=== PATIENT | male | born 1960 | race Caucasian/White ===

== ENCOUNTER 2024-09-20 10:46 | Outpatient (CLI) | payer OTHER, SELFPAY ==
[2024-09-20 11:14] LABS: Basophils Absolute Auto 0.1 K/mm3 (0.0-0.1); Basophils Percent Auto 0.9 % (0.2-1.2); Eosinophils Absolute Auto 0.1 K/mm3 (0-0.3); Eosinophils Percent Auto 1.9 % (0-4.4); Hemoglobin 16.1 g/dL (14.0-18.0); Immature Granulocyte Absolute 0.02 K/mm3 (0.00-0.031); Immature Granulocyte Percent A 0.3 % (0-0.5); Lymphocytes Absolute Auto 1.71 K/mm3 (0.9-3.2); Lymphocytes Percent Auto 26.8 % (18.3-44.2); Mean Corpuscular HGB Conc 33.5 g/dl (32-36); Mean Corpuscular Volume 89.6 fl (80-100); Mean Platelet Volume 9.1 fl (7.4-10.4); Monocytes Absolute Auto 0.5 K/mm3 (0.1-0.6); Monocytes Percent Auto 8.5 % (2.6-8.5); Neutrophils Absolute Auto 3.9 K/mm3 (1.3-6.7); Neutrophils Percent Auto 61.6 % (45.5-73.1); Platelet Count Result 276 k/mm3 (150-375); Red Blood Count 5.36 M/mm3 (4.6-6.20); Red Cell Distribution Width 13.6 % (11.5-14.5); White Blood Count 6.4 K/mm3 (4.5-10.0)
--- OUTSIDE RECORDS SUMMARY | 2024-09-20 11:28 | XMS_ITS ---
Author Organization [facility] Address [address] [place] [address] Phone Care Team Providers Care Flask Maker Name Role Phone Vijaya Zimmerman MD Primary Care Provider Zhang López MD Unavailable Kenneth He MD Unavailable [phone] Zhang Mike MD Unavailable [phone] Active Problems Problem Noted Date Diagnosed Date History of therapeutic radiation 10/30/2022 Overview (10/30/2022): Adjuvant postoperative radiotherapy to the tracheotomy bed and regional nodes, 63 Gy to the primary tumor bed and 54 Gy to the regional nodes in 35 fractions, from 08/25/2022 thru 10/13/2022. 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 He was seen in Medical Oncology consultation 08/13/2022 and not recommended to receive systemic therapy. He began adjuvant postoperative tracheotomy bed and regional иирна radiotherapy 08/25/2022 and completed 10/01/2022 receiving 63 Gy to the primary tumor bed and 54 Gy to the regional nodes in 35 fractions. Postoperative hypothyroidism Current Treatment and Therapy Plans No current plan information found. Past Treatment and Therapy Plans No past plan information found. Past Radiation Episodes * IMRT: Midline Head and NeckOverview* First Treatment Date Last Treatment Date Treatment Site Technique Goal Episode Provider 08/25/2022 10/13/2022 Midline Head and neck IMRT Curative * Linked Problems Transglottic malignant neopl asm of larynx (HCC) Treatment Courses* Course C1 08/25/2022 - 10/13/2022 Treatment Period Fraction Dose Fractions Total Dose Plans Planned Postop Larynx_63Gy [[id number]_6300] 08/25/2022 - 10/13/2022 180 cGy 35 / 35 6,300 cG y Reference Points Delivered HN_PRP 08/25/2022 - 10/13/2022 6,300 cGy Resolved Problems Problem Noted Date Diagnosed Date Resolved Date S/P laryngectomy 08/07/2022 10/30/2022 Transglottic malignant neoplasm of larynx 08/07/2022 08/13/2022 Encounter for radiotherapy 0 10/30/2022 Encounter for follow-up exam ination after completed treatment for malignant neoplasm 05/12/2023
--- OUTSIDE RECORDS SUMMARY | 2024-09-20 11:28 | XMS_ITS | Clinical Summary ---
Author Organization [facility] Address [address] [place] [address] Phone Care Team Providers Care Receivables Specialist Name Role Phone Vijaya Zimmerman MD Primary Care Provider Zhang López MD Unavailable Kenneth He MD Unavailable [phone] Zhang Mike MD Unavailable [phone] Allergies Active Allergy Reactions Criticality Noted Date Comments Penicillins Hives High 06/16/2018 Vanilla Hives High 03/24/2021 Pure vanilla Medications clopidogrel (PLAVIX) 75 MG Tablet Take 75 mg by mouth. 9 Active enalapril (VASOTEC) 5 MG Tablet 3 Active cetirizine (ZyrTEC) 10 MG Tablet TAKE 1 TABLET BY MOUTH EVERY DAY NEEDED 3 Active metoprolol tartrate (LOPRESSOR) 25 MG Tablet 3 Active cyclobenzaprine (FLEXERIL) 10 MG Tablet 3 Active ibuprofen (MOTRIN) 800 MG Tablet TAKE 1 TABLET BY MOUTH TWICE DAILY FOR 15 DAYS NEEDED 3 Active hydrOXYzine (ATARAX) 25 MG Tablet Take 25 mg by mouth every 6 hours as needed. Active naloxone HCl (Narcan) 4 MG/0.1ML Liquid 1 [place] by Nasal route as needed (opioid overdose). administer for symptoms of overdose (severe sleepiness, breathing problems, not responsive). Call 911. May use additional dose to repeat 1 spray intranasally in 2-3 minutes if needed. 2 Each 3 Active Additional Information Patient not taking.Reported on 05/23/2024 levothyroxine (SYNTHROID) 50 MCG Tablet 3 Active Active Problems Problem Noted Date Diagnosed Date [...] began adjuvant postoperative tracheotomy bed and regional ирина radiotherapy 08/25/2022 and completed 10/01/2022 receiving 63 Gy to the primary tumor bed and 54 Gy to the regional nodes in 35 fractions. Postoperative hypothyroidism Resolved Problems Problem Noted Date Diagnosed Date Resolved Date S/P laryngectomy 08/07/2022 10/30/2022 Transglottic malignant neoplasm of larynx 08/07/2022 08/13/2022 Encounter for radiotherapy 0 10/30/2022 Encounter for follow-up exam ination after completed treatment for malignant neoplasm 05/12/2023 Family History Medical History Relation Name Comments Cancer Father Diabetes Father Relation Name Status Comments Father Mother Social History Tobacco Use Types Packs/Day Years Used Date Smoking Tobacco: Former Cigarettes Smokeless Tobacco: Never Tobacco Cessation:Counseling Given: Not Answered Alcohol Use Standard Drinks/Week Comments Never 0 (1 standard drink = 0.6 oz pur e alcohol) Sex and Gender Information Value Date Recorded Sex Assigned at Not on file Legal Sex Male 11:21 PM CDT Gender Identity Not on file Sexual Orientation Not on file Last Filed Vital Signs Vital Sign Reading Time Taken Comments Blood Pressure 121/76 05/23/2024 10:16 AM ANTHROPOLOGICAL LINGUIST Pulse 66 05/23/2024 10:16 AM ANTHROPOLOGICAL LINGUIST Temperature 37.2 C (98.9 F) 05/23/2024 10:16 AM ANTHROPOLOGICAL LINGUIST Respiratory Rate 18 05/23/2024 10:16 AM ANTHROPOLOGICAL LINGUIST Oxygen Saturation 97% 05/23/2024 10:16 AM ANTHROPOLOGICAL LINGUIST Inhaled Oxygen Concentration - - Weight 83.6 kg (184 lb 6.4 oz) 05/23/2024 10:16 AM ANTHROPOLOGICAL LINGUIST Height 172.7 cm (5' 8 ) 05/23/2024 10:16 AM ANTHROPOLOGICAL LINGUIST Body Mass Index 28.04 05/23/2024 10:16 AM ANTHROPOLOGICAL LINGUIST Plan of Treatment Upcoming Encounters Date Type Department Care Team (Late st Contact Info) Description 11/21/2024 10:00 AM CDT Office Visit [facility] Oncology Services [address] [place] [address] Zhang Mike MD [address] [place] [address] Discharge Disposition: Discharged to home or Selfcare Health Maintenance Due Date Last Done Comments Hepatitis C Virus (HCV) Screening 1961 TdaP Immunization 1961 Zoster Immunization (1 of 2) 1980 Colonoscopy 2006 Cologuard 09/05/2011 Respiratory Syncytial Virus (RSV) Immunization (Adult) (1 - Risk 60-74 years 1-dose series) 2021 Colorectal Cancer Screening 07/21/2022 Immunochemical Fecal Occult Blood 07/21/2023 07/20/2022 SARS-COV-2 Immunization (6 - Moderna risk season) 2024 02/09/2024, 02/25/2022, 05/14/2021, Additional history exists PSA Discussion Completed 04/14/2023 Influenza Immunization Completed , 03/23/2023, 02/10/2022 Pneumococcal Immunization (50+ years) Completed 05/11/2024, 05/23/2020 Pneumococcal Immunization Combined Discontinued 05/11/2024, 05/23/2020 Hepatitis B Immunization Aged Out No longer eligible based on patient's age to complete this topic Meningococcal Immunization (ACWY) Aged Out No longer eligible based on patient's age to complete this topic Rotavirus Immunization Aged Out No lo nger eligible based on patient's age to complete this topic Procedures Procedure Name Priority Date/Time Associated Diagnosis Comments PSA SCREEN 04/14/2023 12:00 AM ANTHROPOLOGICAL LINGUIST from Last 3 Months or Most Recently Relevant to Health Maintenance Results * PSA SCREEN (04/14/2023 12:00 AM ANTHROPOLOGICAL LINGUIST) PSA SCREEN, TOTAL 0.56 SCAN 04/14/2023 us Provider Scan CHEMISTRY ORDERABLES Final Resul t SCAN from Last 3 Months or Most Recently Relevant to Health Maintenance Insurance Care Teams Receivables Specialist Relationship Specialty Start Date End Date Vijaya Zimmerman MD [address] [place] [address] [place] [address] PCP - General Internal Medicine 08/07/22 Zhang López MD [address] [facility] [address] [place] [address] Consulting Physician Plastic Surgery Within the Head & Neck 08/13/22 Kenneth He MD [address] [place] [address] Consulting Physician Medical Oncology 08/13/22 Zhang Mike MD [address] [place] [address] Consulting Physician Radiation Oncology 08/13/22
--- OUTSIDE RECORDS SUMMARY | 2024-09-20 11:28 | XMS_ITS ---
Author Organization [facility] Address [address] [place] [address] Phone Care Team Providers Care Donations Attendant Name Role Phone Vijaya Zimmerman MD Primary Care Provider Active Problems Problem Noted Date Diagnosed Date Tracheostomy status 07/18/2022 Hoarseness of voice 07/16/2022 Squamous cell carcinoma of neck 07/16/2022 On mechanically assisted ventilation 07/13/2022 Neck mass 07/13/2022 Protein-calorie malnutrition, severe 07/13/2022 Melena 07/12/2022 Upper GI bleed 07/12/2022 Mouth bleeding 07/12/2022 History of mandibular surgery 07/12/2022 Acute blood loss anemia 07/12/2022 Sinus tachycardia 07/12/2022 Neck abscess 07/12/2022 Lactic acidosis 07/12/2022 Hemoptysis 07/12/2022 Current Treatment and Therapy Plans No current plan information found. Past Treatment and Therapy Plans No past plan information found. Lifetime Dose Tracking * Chemical Lifetime Dose Automatic Entry Manual Entr y Effective Dose 20.4 mSv 20.4 mSv 0 mSv Total DLP 2,951.92 DLP 2,951.92 DLP 0 DLP CTDIvol Max 69.91 mGy 69.91 mGy 0 mGy CTDIvol Min 9.39 mGy 9.39 mGy 0 mGy
--- OUTSIDE RECORDS SUMMARY | 2024-09-20 11:28 | XMS_ITS | Encounter Summary ---
Author Organization [facility]EL Restrepo [facility] Address [address] [place] [address] Care Team Providers Care Correctional Food Service Supervisor Name Role Phone Vijaya Zimmerman MD Primary Care Provider Reason for Referral * Laboratory Services (Routine) - Open Specialty Diagnoses / Procedures Referred By Contac t Referred To Contact Diagnoses Polycythemia, secondary Procedures JAK2 MUTATION Oniel Valencia MD [facility] [place] [id number] Phone: tel: fax: Referral ID Status Reason Start Date Expiration Date Visits Re quested Visits Authorized [id number] Open 09/20/2024 10/21/2025 1 1 Reason for Visit * Reason Comments Establish Care Encounter Details Date Type Department Care Team (Late st Contact Info) Description 09/20/2024 10:30 AM CDT Office Visit [facility] Oncology and Hematology - [place] [address] [place] [address] [address] [place] [address] Oniel Valencia MD [address] [place] [address] Polycythemia, secondary (Primary Dx) Social History Tobacco Use Types Packs/Day Years Used Date Smoking Tobacco: Former Cigarettes 1 50 Q uit: 07/01/2021 Smokeless Tobacco: Never Tobacco Cessation:Counseling Given: Not Answered Alcohol Use Standard Drinks/Week Comments Never 0 (1 standard drink = 0.6 oz pure alcohol) not for decades brother is an alcoholic Feeling Safe Answer Date Recorded Are you in a relationship wi th someone who hurts you emotionally and/or physically? No 07/18/2022 Food Insecurity Answer Date Recorded Patient needs follow up regarding: Not on file 07/08/2023 Transportation Needs Answer Date Record ed Patient needs follow up regarding: Not on file 07/08/2023 Housing Stability Answer Date Recorded Patient needs follow up regarding: Not on file 07/08/2023 Utility Needs Answer Date Recorded Patient needs follow up regarding: Not on file 07/08/2023 Sex and Gender Information Value Date Recorded Sex Assigned at Not on file Legal Sex Male 7:22 PM AGRICULTURAL LOAN OFFICER Gender Identity Not on file Sexual Orientation Not on file documented as of this encounter Last Filed Vital Signs Vital Sign Reading Time Taken Comments Blood Pressure 107/63 09/20/2024 9:49 AM CDT Pulse 62 09/20/2024 9:49 AM CDT Temperature 36.6 C (97.9 F) 09/20/2024 9:49 AM CDT Respiratory Rate 15 09/20/2024 9:49 AM CDT Oxygen Saturation 94% 09/20/2024 9:4 9 AM CDT Inhaled Oxygen Concentration - - Weight 82.6 kg (182 lb 3.2 oz) 09/20/2024 9:49 AM CDT Pt verbally stated that this is the correctly Height 170.2 cm (5' 7 ) 09/20/2024 9:49 AM CDT Body Mass Index 28.54 09/20/2024 9:49 AM CDT documented in this encounter Progress Notes * Oniel Valencia MD - 09/20/2024 10:05 AM CDT Hematology-oncology consult Note Requesting Physician Vijaya Zimmerman MD Primary Care Physician Vijaya Zimmerman MD Problem list Patient Active Problem List Diagnosis Code Melena K92.1 Upper GI bleed K92.2 Mouth bleeding K13.79 History of mandibular surgery Z98.890 Acute blood loss anemia D62 Sinus tachycardia R00.0 Neck abscess L02.11 Lactic acidosis E87.20 Hemoptysis R04.2 On mechanically assisted ventilation ([facility]) Z99.11 Neck mass R22.1 Protein-calorie malnutrition, severe E43 Hoarseness of voice R49.0 Squamous cell carcinoma of neck C44.42 Tracheostomy status ([facility]) Z93.0 Previous TREATMENT ? Measurable Disease ? Reason for Visit Slim Mccullough is a 64 y.o. male who was referred for consultation for erythrocytosis. History of present illness This is a pleasant 64-year-old male with history of smoking 1 pack/day for 50 years duration quit in July 2022 when he was diagnosed with laryngeal cancer status post total laryngectomy and left neck dissection and then adjuvant radiation therapy treatment in October 2022. Patient also has a history of hypothyroidism, hyperlipidemia and coronary artery disease status post stent placement in 2002. Currently he is on Plavix and aspirin. Denies any chest pain and shortness of breath. He has some dyspnea on exertion. Patient labs from May 2024 showed hematocrit of 51.7 with hemoglobinof 17.3. He is going to have pulmonary function testing and will follow-up with the pulmonary service. Denies any other complaints. Past Medical History Past Medical History: Diagnosis Date CAD (coronary artery disease) HTN (hypertension) Smoking Hyperlipidemia Hypothyroidism Surgical History Past Surgical History: Procedure Laterality Date HX CAROTID STENT HX ESOPHAGOGASTRODUODENOSCOPY N/A 07/15/2022 ESOPHAGOGASTRODUODENOSCOPY performed by Jama Aguilar MD at [facility] HX LARYNGECTOMY N/A 07/17/2022 TOTAL LARYNGECTOMY performed by Zhang López MD at [facility] OR [facility] HX MANDIBLE SURGERY HX NECK DISSECTION Left 07/17/2022 NECK DISSECTION performed by Zhang López MD at [facility] OR [facility] NECK SURGERY LARYNGOSCOPY N/A 07/13/2022 DIRECT LARYNGOSCOPY, BIOPSY, NEEDLE ASPIRATE performed by Jimy Maria MD at [facility] OR [facility] DC TRACHEOSTOMY PLANNED SEPARATE PROCEDURE N/A 07/13/2022 POSS TRACHEOSTOMY performed by Jimy Maria MD at [facility] OR [facility] Medications Current Outpatient Medications Medication Sig Dispense Refill levothyroxine 75 mcg tablet Take 1 Tablet (75 mcg) by mouth daily in the morning. 30 Tablet 11 icosapent ethyL (Vascepa) 1 gram Capsule Take 2 Grams by mouth 2 times daily. hydrOXYzine HCL (ATARAX) 25 mg tablet TAKE 1 TABLET BY MOUTH EVERY DAY NEEDED cyclobenzaprine (FLEXERIL) 10 mg tablet Take 1 Tablet (10 mg) by mouth 3 times daily as needed for Spasm. 60 Tablet 0 HYDROcodone-acetaminophen (NORCO) 5-325 mg tablet Take 1 Tablet by mouth every 6 hours as needed for Pain, Moderate. Max Daily Amount: 4 Tablets 25 Tablet 0 aspirin (ECOTRIN EC) 81 mg Tablet, Delayed Release (E.C.) Take 81 mg by mouth daily. clopidogreL (Plavix) 75 mg Tablet Take 75 mg by mouth. metoprolol tartrate (LOPRESSOR) 25 mg tablet Take 25 mg by mouth 2 times daily. enalapril (VASOTEC) 5 mg tablet Take 5 mg by mouth daily. atorvastatin (LIPITOR) 40 mg tablet Take 40 mg by mouth daily at bedtime. No current facility-administered medications for this visit. Allergies Allergies Allergen Reactions Penicillins Hives Vanilla Extract Flavor Hives Immunizations: Immunization History Administered Date(s) Administered (Moderna Bivalent)(6 Mos Up) COVID-19 Vaccine - Emergency Use Authorization, MRNA(Pf) 50 Mcg/0.5 MlIm Susp 02/25/2022 (SPIKEVAX) (12 YRS UP PRIMARY SERIES) COVID-19 VACCINE - MRNA-1273(PF) 100 MCG/0.5 ML IM SUSP 07/12/2020, 08/09/2020, 05/14/2021 (SPIKEVAX)(12 YRS AND UP)COVID-19 VACCINE, MRNA, LNP-S(PF) 50 MCG/0.5 ML IM SUSPENCY USE AUTHORIZATION, RECOMBINANT-ADJ(PF) 5 MCG/0.5 ML IM SUSP 02/09/2024 Family History Family History Problem Relation Name Age of Onset Diabetes Father Lung Cancer Father Social History Social History Tobacco Use Smoking status: Former Current packs/day: 0.00 Average packs/day: 1 pack/day for 50.0 years (50.0 ttl pk-yrs) Types: Cigarettes Quit date: 07/01/2021 Years since quittin.2 Smokeless tobacco: Never Substance Use Topics Alcohol use: Never Comment: not for decades brother is an alcoholic Review of Systems Constitutional: Patient did not mention fever; no night sweats; no anorexia; no weight loss; no fatique NEENT: Patient did not mention headache; no change in vision; no change in hearing; no sore throat;no dysphagia Respiratory: Patient did not mention shortness of breath; no pleuritic chest pain; no cough; no hemoptysis Cardiac: Patient did not mention cardiac-like chest pain; no palpitations; no orthopnea; no PND; complain of SR GI: Patient did not mention abdominal pain; no nausea; no vomiting; no diarrhea; no hematochezia; no melena : Patient did not mention dysuria; no frequency; no hesitancy; no hematuria RECOVERY ROOM NURSE: Musculosketetal: Patient did not mention bone pain; no arthralgia; no joint swelling; no myalgia; Skin: Patient did not mention pruritis; no rash; no petechiae; no ecchymoses Endocrine: Patient did not mention polydipsia; no polyuria; no unusual weight gain Neuro: Patient did not mention headache; no change in vision; no sensory changes; no muscle weakness; no confusion; no seizures Psych: Patient did not mention anxiety; no depression; Physical Exam Vitals: As per nursing note Constitutional: Well developed, well nourished, no acute distress, non-toxic appearance Teeth and gum. No signs of infection or swelling. Eyes: PERRL, conjunctiva normal HEENT: Atraumatic, external ears normal, nose normal, oropharynx moist, no pharyngeal exudates. no sinus tenderness Neck- normal range of motion, no tenderness, supple Respiratory: No respiratory distress, normal breath sounds, no rales, no wheezing Cardiovascular: Normal rate, normal rhythm, no murmurs, no gallops, no rubs GI: Soft, nondistended, normal bowel sounds, nontender, no splenomegaly, no hepatomegaly, no mass, no rebound, no guarding : No costovertebral angle tenderness Musculoskeletal: No edema, no tenderness, no deformities. Back- no tenderness Integument: Well hydrated, no rash, Digits and nails inspection normal Lymphatic: No lymphadenopathy noted Neurologic: Alert & oriented x 3, CN 2-12 normal, normal motor function, normal sensory function, no focal deficits noted Psychiatric: Speech and behavior appropriate ? labs No results found for this or any previous visit (from the past 24 hours). Labs from May 2024 showed WBC 6.2 hemoglobin 17.3 hematocrit 51.7 platelet 321,000 Pathology ? Imaging & Other Studies Performance Status? Assessment / Plan: ? Secondary erythrocytosis. Patient is a pleasant 64-year-old male with history of smoking 1 pack/day for more than 50 years duration quit in July 2022 when he was diagnosed with laryngeal cancer status post total laryngectomy and left neck dissection on July 17, 2022. He also received adjuvant radiation therapy treatment. Patient also has a history of coronary artery disease status post stent placement in 2002. He denies any other thromboembolic events. I discussed the differential diagnosis of erythrocytosis which is secondary to smoking in this particular case even though he has quit smoking. He denies any sleep apnea and male hormone replacement therapy. I will order workup that will include CBC with differential, CMP, retroprotein level and JAK2 mutation. He is already on aspirin and Plavix. Based on the repeat lab we will decide about phlebotomy to keep hematocrit less than 50. I have answered all the questions to patient satisfaction. Follow-up phone visit with me in 2 weeks. 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 Patient is in remission and will follow-up with Dr. López. Coronary artery disease status post stent placement in 2002. He is asymptomatic and will continue aspirin and Plavix. Hyperlipidemia. Patient is on Lipitor. Hypothyroidism. Patient is on levothyroxine. Thank you very much for allowing me to participate in Slim Mccullough's evaluation and management. Please feel free to contact if I can be of any further assistance in your patient???s care requiringhematology or oncology evaluation. Sincerely, ? ? Oniel Valencia M.D. cell TOBACCO COUNSELING He is not a tobacco/nicotine user. Oniel Valencia MD ,09/20/2024 11:20 AM ? Total time spent 60 minutes, two third of the total time spent counseling patient [id number]. CC:?Breasts: Symmetric, No masses, No nipple discharge. documented in this encounter Plan of Treatment Upcoming Encounters Date Type Department Care Team (Late st Contact Info) Description 10/04/2024 4:30 PM CDT Telephone Check Up [facility] Oncology and Hematology - [place] [address] [facility] [address] [place] [address] Oniel Valencia MD [address] [facility] [address] [place] [address] 01/30/2025 10:15 AM CDT Office Visit [facility] EAR, NOSE AND THROAT [facility] [address] [place] [address] Zhang López MD [address] [place] [address] Scheduled Orders Name Type Priority Associated Diagnoses Orde r Schedule CBC WITH DIFFERENTIAL Lab Stat Polycythemia, secondary Expected: 09/20/2024, Expires: 09/20/2025 COMPREHENSIVE METABOLIC PANEL Lab Stat Polycythemia, secondary Expected: 09/20/2024, Expires: 09/20/2025 ERYTHROPOIETIN LEVEL Lab Routine Polycythemia, secondary Expected: 09/20/2024, Expires: 09/20/2025 JAK2 MUTATION Lab Routine Polycythemia, secondary Expected: 09/20/2024, Expires: 09/20/2025 documented as of this encounter Visit Diagnoses Diagnosis Polycythemia, secondary- Primary documented in this encounter Care Teams Correctional Food Service Supervisor Relationship Specialty Start Date End Date Vijaya Zimmerman MD PCP - General Internal Medicine 07/21/22 documented as of this encounter
--- OUTSIDE RECORDS SUMMARY | 2024-09-20 11:29 | XMS_ITS | Clinical Summary ---
Author Organization [facility] Address [address] [place] [address] Phone Care Team Providers Care Transmission Tester Name Role Phone Vijaya Zimmerman MD Primary Care Provider Allergies Active Allergy Reactions Criticality Noted Date Comments Penicillins Hives High 07/12/2022 Vanilla Extract Flavor Hives High 07/12/2022 Medications aspirin (ECOTRIN EC) 81 mg Tablet, Delayed Release (E.C.) Take 81 mg by mouth daily. Active clopidogreL (Plavix) 75 mg Tablet Take 75 mg by mouth. Active metoprolol tartrate (LOPRESSOR) 25 mg tablet Take 25 mg by mouth 2 times daily. Active enalapril (VASOTEC) 5 mg tablet Take 5 mg by mouth daily. Active atorvastatin (LIPITOR) 40 mg tablet Take 40 mg by mouth daily at bedtime. Active HYDROcodone-merritt taminophen (NORCO) 5-325 mg tabletIndicatio ns:Laryngeal cancer (CMS/HCC) Take 1 Tablet by mouth every 6 hours as needed for Pain, Moderate. Max Daily Amount: 4 Tablets 25 Tablet 07/25/2022 1:37 PM CDT 07/25/2022 Active cyclobenzaprine (FLEXERIL) 10 mg tablet Take 1 Tablet (10 mg) by mouth 3 times daily as needed for Spasm. 60 Tablet 07/30/2022 Active hydrOXYzine HCL (ATARAX) 25 mg tablet TAKE 1 TABLET BY MOUTH EVERY DAY NEEDED 12/18/2022 Active icosapent ethyL (Vascepa) 1 gram Capsule Take 2 Grams by mouth 2 times daily. Active levothyroxine 75 mcg tablet Take 1 Tablet (75 mcg) by mouth daily in the morning. 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 On mechanically assisted ventilation 07/13/2022 Neck mass 07/13/2022 Protein-calorie malnutrition, severe 07/13/2022 Melena 07/12/2022 Upper GI bleed 07/12/2022 Mouth bleeding 07/12/2022 History of mandibular surgery 07/12/2022 Acute blood loss anemia 07/12/2022 Sinus tachycardia 07/12/2022 Neck abscess 07/12/2022 Lactic acidosis 07/12/2022 Hemoptysis 07/12/2022 Encounters Date Type Department Care Team Description 09/20/2024 10:30 AM CDT Office Visit [facility] Oncology and Hematology - [place] [address] [place] [address] [facility] [address] [place] [address] Oniel Valencia MD Polycythemia, secondary (Primary Dx) 07/27/2024 8:45 AM CDT Office Visit [facility] E[facility], NOSE AND TH[facility]AT [facility] [address] [place] [address] [place] [phone] Zhang López MD Routine cancer follow-up visit (Primary Dx); History of cancer of larynx; Postoperative hypothyroidism 07/19/2024 External Device Data [facility] ABSTRACTION Provider, Abstract 07/11/2024 External Device Data [facility] ABSTRACTION Provider, Abstract 07/11/2024 External Device Data [facility] ABSTRACTION Provider, Abstract 07/04/2024 External Device Data [facility] ABSTRACTION Provider, Abstract from Last 3 Months Family History Medical History Relation Name Comments Diabetes Father Lung Cancer Father Relation Name Status Comments Father Social History Tobacco Use Types Packs/Day Years [...] on file 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 Gender Identity Not on file Sexual Orientation [...] Mass Index 28.54 09/20/2024 9:49 AM CDT Plan of Treatment Upcoming Encounters Date Type Department Care Team (Late st Contact Info) Description 10/04/2024 4:30 PM CDT Telephone Check Up [facility] Oncology and Hematology - [place] [address] [facility] [address] [place] [address] Oniel Valencia MD [address] [facility] [address] [place] [address] 01/30/2025 10:15 AM CDT Office Visit [facility] EAR, NOSE AND THROAT [place] [facility] [address] [facility] [address] [place] [address] [place] [address] Zhang López MD [address] [place] [address] Health Maintenance Due Date Last Done Comments DTAP/TDAP/TD VACCINES (1 - Tdap) 1980 COLORECTAL SCREENING 2006 Colorectal Cancer Screening 2006 FIT-DNA Q 3 years 2006 FIT/FOBT Q 1 year 2006 Flex Sig/CT Colonography Q 5 years 2006 Lung Cancer Screening 09/05/2011 ZOSTER VACCINE (1 of 2) 09/05/2011 RSV VACCINE (60+ or ) (1 - Risk 60-74 years 1-dose series) 2021 Preventative Visit- Commercial 05/03/2024 Pre-Diabetes and Diabetes Screening 07/12/2025 07/12/2022 INFLUENZA VACCINE Completed 02/03/2024, , 02/10/2022 COVID-19 Vaccine Completed 02/09/2024, , 05/14/2021, Additional history exists Procedures Procedure Name Priority Date/Time Associated Diagnosis Comments HEMOGLOBIN A1C Routine 07/12/2022 4:22 AM CDT from Last 3 Months or Most Recently Relevant to Health Maintenance Results * (ABNORMAL) HEMOGLOBIN A1C (07/12/2022 4:22 AM CDT) HEMOGLOBIN A1C 5.7(H) <5.7 % 07/12/2022 7:42 AM CDT [facility] EST. AVG GLUCOSE, A1C 117 mg/dL 07/12/2022 7:42 AM CDT [facility] Blood Venipuncture / Unknown 07/12/2022 4:22 AM CDT 07/12/2022 4:35 AM CDT [facility] - 07/12/2022 7:42 AM CDT HGB A1C INTERPRETATION NORMAL: <5.7% PRE-DIABETES: 5.7 - 6.4% DIABETES: 6.5% OR GREATER us Vlad Esqueda MD CHEMISTRY ORDERABLES Final Resul t Performing Organization Address City/State/[facility] Co de Phone Number [facility]# [id number] [address] [place] [address] from Last 3 Months or Most Recently Relevant to Health Maintenance Insurance RX [facility] [employer] CHOICE [id number] CHOICE [id number] Advance Directives For more information, please contact: [phone] * Full Code (Latest Code Status on File) Date Activated Date Inactivated Comments 07/18/2022 7:30 AM 07/25/2022 2:37 PM * Full Code Date Activated Date Inactivated Comments 07/12/2022 3:29 AM 07/18/2022 7:30 AM Care Teams Transmission Tester Relationship Specialty Start Date End Date Vijaya Zimmerman MD PCP - General Internal Medicine 07/21/22
[2024-09-20 12:59] LABS: Alanine Aminotransferase 21 U/L (6-50); Albumin Level 4.1 g/dL (3.5-5.1); Alkaline Phosphatase 114 U/L (38-126); Anion Gap 6 mmol/L (4-12); Aspartate Amino Transferase 25 U/L (17-59); Bilirubin,Total 0.8 mg/dL (0.2-1.3); Blood Urea Nitrogen 18 mg/dL (9-20); Calcium 8.6 mg/dL (8.4-10.2); Carbon Dioxide 27 mmol/L (22-30); Chloride 106 mmol/L (98-107); Estimated Glomerular Filt Rate > 60; Glucose 94 mg/dL (65-110); Potassium 4.2 mmol/L (3.4-5.0); Sodium 139 mmol/L (137-145)
[2024-09-26 14:04] LABS: Erythropoietin (EPO) 21.1 mIU/mL (2.6-18.5)
== END 2024-09-20 10:47 | disposition home or self-care (01) ==
LOC: ANHLAB 10:54
PROVIDERS: PCP Internal Medicine; Visit Provider Internal Medicine Hematology & Oncology
DX: D75.1 Secondary polycythemia (principal)
CPT/HCPCS: 36415; 80053; 81270; 82668; 85025